=== PATIENT | male | born 1975 ===

== ENCOUNTER 2023-06-13 08:01 | Outpatient (REF) | payer MEDICAID, SELFPAY ==
[2023-06-13 12:00] LABS: Cholesterol 148 mg/dL (<200); HDL Cholesterol 47 mg/dL (>40); LDL Cholesterol Calculated 81 mg/dL (<100); Triglycerides 102 mg/dL (<150)
[2023-06-13 12:19] LABS: Folate 12.4 ng/mL (> or = 4.0); Vitamin B12 486 pg/mL (200-900)
== END 2023-06-13 08:02 | disposition home or self-care (01) ==
LOC: HO.HHCL 08:01
PROVIDERS: Visit Provider Registered Nurse
DX: R73.03 Prediabetes (principal); E78.2 Mixed hyperlipidemia
CPT/HCPCS: 36415; 80061; 82607; 82746

== ENCOUNTER 2024-01-01 14:36 | Outpatient (REF) | payer MEDICAID, SELFPAY ==
[2024-01-01 16:47] LABS: Alanine Aminotransferase 16 U/L (0-40); Albumin Level 4.2 g/dL (3.5-5.0); Alkaline Phosphatase 48 U/L (39-117); Anion Gap 14 (12-20); Aspartate Amino Transferase 16 U/L (5-37); Bilirubin Total 0.2 mg/dL (0.0-1.0); Blood Urea Nitrogen 16 mg/dL (9-16); Calcium 9.4 mg/dL (8.4-10.2); Carbon Dioxide 26 mmol/L (22-29); Chloride 105 mmol/L (96-108); Estimated Average Glucose 111 mg/dL; Estimated Glomerular Filt Rate 58; Glucose Random 94 mg/dL (60-115); Hemoglobin A1c % 5.5 % (<6.0); Sodium 141 mmol/L (135-145); Total Protein 7.5 g/dL (6.5-8.0)
== END 2024-01-01 14:37 | disposition home or self-care (01) ==
LOC: HO.HHCL 14:36
PROVIDERS: Visit Provider Registered Nurse
DX: R73.03 Prediabetes (principal); I10 Essential (primary) hypertension
CPT/HCPCS: 36415; 80053; 83036

== ENCOUNTER 2024-12-12 08:16 | Outpatient (REF) | payer MEDICAID, SELFPAY ==
--- OUTSIDE RECORDS SUMMARY | 2024-12-12 08:21 | XMS_ITS | Clinical Summary ---
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 Do not crush, chew, or split. 360 tablet 02/08/20 23 Active carbamide peroxide (Debrox) 6.5 % otic solution Administer 3-5 drops to affected ear twice daily for 5 days and then call clinic for ear irrigation 15 mL 04/23/20 23 Active triamcinolone (Kenalog) 0.1 % cream Apply topically 2 times daily. 30 g 1 03/05/20 24 Active olmesartan (BENIcar) 5 MG tabletIndications :Essential hypertension TAKE 1 TABLET (5 MG) BY MOUTH ONCE PER DAY. 90 tablet 2 08/27/19 25 Active rosuvastatin (Crestor) 10 MG tabletIndications :Mixed hyperlipidemia TAKE 1 TABLET BY MOUTH ONCE PER DAY. 90 tablet 11/22/19 25 Active chlorthalidone (Hygroton) 25 MG tabletIndications :Essential hypertension TAKE 0.5 TABLETS (12.5 MG) BY MOUTH ONCE PER DAY. 45 tablet 11/22/19 25 Active rosuvastatin (Crestor) 10 MG tabletIndications :Mixed hyperlipidemia Take 1 tablet (10 mg) by mouth Once per day. 30 tablet 11 12/05/19 24 2024 Discontinued chlorthalidone (Hygroton) 25 MG tabletIndications :Essential hypertension Take 0.5 tablets (12.5 mg) by mouth Once per day. 45 tablet 3 12/05/19 24 2024 Discontinued Active Problems Problem Noted Date Diagnosed Date Healthcare maintenance 03/19/2023 Overview (06/12/2023): Colonoscopy with biopsy January 2022-one polyp tubular adenoma (repeat 5 years). Pt showed me result on MyChart on phone. - Establisahed with eye and dental care at outside facilities Assessment & Plan (06/12/2023 10:33 PM EST): - Accepts flu and Td booster - Declines COVID Hyperlipidemia 02/28/2023 Overview (03/19/2023): ?? Rosuvastatin 10mg daily Assessment & Plan (06/12/2023 10:31 PM EST): ?? Continue current regimen ?? Repeat FLP Assessment & Plan (03/24/2023 11:28 AM EDT): ?? Engaged in shared decision making with patient re starting lipid lowering medication. Pt would like to start statin ?? START rosuvastatin 10mg daily Reviewed administration, risks, side effects to include muscle aches, headache, GI upset and risk of hepatotoxicity. Seek immediate medical care of severe nausea vomiting, yellowing of skin/eyes, darkening of urine or abdominal pain ?? Essential hypertension 10/31/2022 Overview (06/15/2024): Olmesartan 5mg daily Chlorthalidone 25mg - Aerobic exercise to reduce BP. Initial goal of 30 min walk 3-5x/week. Increase as tolerated. - low-sodium diet (goal: <2g/day) and heart healthy diet such as DASH to reduce BP and prevent ASCVD. - Home BP monitoring 1-2 x day with goal of <140/90. - Seek immediate medical attention for chest pain, palpitations, SOB, syncope, or sudden changes in mental status. - Do not change or discontinue current prescriptions without first consulting health care provider Assessment & Plan (06/12/2023 10:30 PM EST): ?? Well controlled ?? Continue current regimen Assessment & Plan (03/19/2023 8:56 AM EDT): ?? Well controlled ?? Continue current regimen ?? Prediabetes 10/31/2022 Overview (06/12/2023): ?? Metformin 1000 mg b.i.d Lab Results Component Value Date HGBA1C 5.4 11/03/2022 ?? Assessment & Plan (06/12/2023 10:32 PM EST): ?? Continue metformin ?? Check B12 levels given prolonged use Encounters Date Type Department Care Team Description 12/05/2024 2:30 PM EDT Office Visit [facility] [address] [place] [id number] [facility] Essential hypertension (Primary Dx); Prediabetes; Encounter for immunization; Dietary counseling; Exercise counseling; Class 3 severe obesity due to excess calories with serious comorbidity and body mass index (BMI) of 40.0 to 44.9 in adult 12/05/2024 Travel 11/25/2024 Patient Outreach [facility] [address] [place] [id number] [facility] Pre-visit Planning (SDOH screening negative and tobacco screening negative) 11/21/[address] [address] [place] [facility] Mixed hyperlipidemia; Essential hypertension from Last 3 Months Immunizations Immunization Administration Dates Next Due Influenza injectable quadrivalent preservative f ree 06/06/2023 Influenza, seasonal, injectable, preservative fr ee 06/04/2024 Pfizer Covid-19 Vaccine 12+ 12/05/2024, 3 Pneumococcal Conjugate PCV 20 12/05/2024 TD (adult), 2 Lf tetanus tox oid, preservative free, adsorbed 06/06/2023 Family History Medical History Relation Name Comments Hypertension Mother Stroke Mother Colon cancer Neg Hx Prostate cancer Neg Hx Relation Name Status Comments Mother Social History Tobacco Use Types Packs/Day Years Used Date Smoking Tobacco: Former Cigarettes Passive Smoke Exposure: Never Smokeless Tobacco: Never Tobacco Cessation:Counseling Given: Not Answered Alcohol Use Standard Drinks/Week Comments Never 0 (1 standard drink = 0.6 oz pur e alcohol) Depression Answer Date Recorded Patient Health Questionnaire-9 Score 0 06/04/2024 Patient Health Questionnaire-9 Score 0 06/04/2024 Last PHQ-9: Questionnaire Data Not on file 1 08/04/2023 Housing Stability Answer Date Recorded What is your housing situation today? I have florencia rosales 12/05/[address] you li ve. Do you have problems with any of the following? None of the above 12/05/2023 Food Insecurity Answer Date Recorded Within the past 12 months, y ou worried that your food would run out before you got money to buy more: Never True 12/05/2023 Within the past 12 months,th e food you bought just didn't last and you didn't have enough money to get more: Never True Transportation Answer Date Recorded In the past 12 months, has l ack of transportation kept you from medical appts, meetings, work or from getting things needed for daily living? No 12/05/2023 Utilities Answer Date Recorded In the past 12 months, has t he electric, gas, oil or water [employer] threatened to shut off services in your home? No 12/05/2023 Depression Answer Date Recorded Patient Health Questionnaire-2 Score 0 06/04/2024 Internet Access Answer Date Recorded Internet Access Q1 Yes 05/26/2024 Internet Access Q2 Not on file 05/26/2024 Sex and Gender Information Value Date Recorded Sex Assigned at Male 10/31/2022 4:06 PM EDT Legal Sex Male 4:05 PM EDT Gender Identity Male 10/31/2022 4:06 PM EDT Sexual Orientation Straight 08/25/2024 4: 07 PM EST Last Filed Vital Signs Vital Sign Reading Time Taken Comments Blood Pressure 138/70 12/05/2024 3:05 PM EDT Pulse 80 12/05/2024 2:31 PM EDT Temperature 36.9 ??C (98.4 ??F) 12/05/2024 2:31 PM ED T Respiratory Rate 20 12/05/2024 2:31 PM EDT Oxygen Saturation 98% 06/04/2024 2:22 PM EST Inhaled Oxygen Concentration - - Weight 122 kg (268 lb 3.2 oz) 12/05/2024 2:31 PM EDT Height 167.6 cm (5' 6 ) 12/05/2024 2:31 PM EDT Body Mass Index 43.29 12/05/2024 2:31 PM EDT Plan of Treatment Health Maintenance Due Date Last Done Comments CT Colonography 1973 FIT DNA/Cologuard 1973 FIT 1973 FOBT 1973 Sigmoidoscopy 1973 Disability Screening 1973 Alcohol/Substance Use Screening 1985 Family Planning (PISQ) 1988 Hepatitis C Screening 1991 Hepatitis B Vaccines (1 of 3 - 19+ 3-dose series) 1992 Zoster Vaccines (1 of 2) 2023 Diabetes: Hemoglobin A1C 12/31/2024 024, 11/03/2022 Depression Screening 06/04/2025 06/04/2024, 06/04/2024 SDOH Screening 11/25/2025 11/25/2024 Tobacco Screening 12/08/2025 12/08/2024 Colonoscopy 01/06/2027 01/06/2022 Colorectal Cancer Screening 01/06/2027 Lipid Panel 06/13/2028 06/13/2023, 12/12/2022, 11/03/2022 RSV Patients and Patients Aged 60 years or older (1 - 1-dose 75+ series) 2048 HIV Screening Completed 12/12/2022 DTaP/Tdap/Td Vaccines Discontinued 06/06/2023 Influenza Vaccine Completed 06/04/2024, 06/06/2023 COVID-19 Vaccine Completed 12/05/2024, 06/13/2023 Pneumococcal Vaccine: 50+ Years Completed 12/05/2024 HIB Vaccines Aged Out No longer eligi ble based on patient's age to complete this topic HPV Vaccines Aged Out No longer eligi ble based on patient's age to complete this topic Hepatitis A Vaccines Aged Out No long er eligible based on patient's age to complete this topic IPV Vaccines Aged Out No longer eligi ble based on patient's age to complete this topic Meningococcal B Vaccine Aged Out No l onger eligible based on patient's age to complete this topic Meningococcal Vaccine Aged Out No roque ana eligible based on patient's age to complete this topic RSV under 20 months Aged Out No longe r eligible based on patient's age to complete this topic Rotavirus Vaccines Aged Out No longer eligible based on patient's age to complete this topic Procedures Procedure Name Priority Date/Time Associated Diagnosis Comments HEMOGLOBIN A1C Routine 01/01/2024 2:37 PM EDT Prediabetes LIPID PANEL, STANDARD Routine 06/13/2023 8:03 AM EST Mixed hyperlipidemia HIV 1/2 ANTIGEN/ANTIBODY, FOURTH GENERATION W/RFL Routine 12/12/2022 8:39 AM EDT Healthcare maintenance HM COLONOSCOPY Routine 01/06/2022 from Last 3 Months or Most Recently Relevant to Health Maintenance Results * Hemoglobin A1c (01/01/2024 2:37 PM EDT) Hemoglobin A1c 5.5 <6.0 % [facility] Comment:Hemoglobin A1C Refer ence Range Adults: 4.8 - 6.0 % Non diabetic: < 6.0 % Goal: < 7.0 %Additional Action Suggested: > 8.0 %Note: Hemoglobin A1c results are invalid for patients with abnormal amounts of HbF. Blood transfusions may impact the HbA1c concentration in the patient sample. Estimated Average Glucose 111 mg/dL [facility] Comment:eAG = Estimated ave rage glucose which is %A1C expressed asaverage glucose, using the formula of the T1G-NzcxesoLebucmd Glucose study (ADAG), Diabetes Care, Vol.31,#8,Feb. 2007 Blood Venous blood specimen / Unknown 01/01/2024 2:37 PM EDT 01/01/2024 4:15 PM EDT [facility] LAB BLOOD ORDERABLES Final Re sult [facility] [address] [place] [phone] * Lipid Panel, Standard (06/13/2023 8:03 AM EST) Triglycerides 102 <150 mg/dL [facility] Comment:Desirable Triglyceri de: less than 150 mg/dLBorderline High Triglyceride 150-199 mg/dLHigh Triglyceride: 200-499 mg/dLVery High Triglyceride: greater than or equal to 5OO mg/dL Cholesterol 148 <200 mg/dL [facility] Comment:Desirable Cholestero l: less than 200 mg/dLBorderline High Cholesterol: 200-239 mg/dLHigh Cholesterol: greater than 239 mg/dL LDL Cholesterol Calculated 81 <100 mg/dL [facility] Comment:Desirable LDL: less than 100 mg/dLNear Optimal/Above Optimal LDL: 110- 129 mg/dLBorderline High LDL: 130-159 mg/dLHigh LDL: 160-189 mg/dLVery High LDL: greater than or equal to 190 mg/dL HDL Cholesterol 47 >40 mg/dL [facility] Comment:Desirable HDL: great er than 40 mg/dL Note: This HDL assay may give artificially low results in patients with liver disease. Blood Venous blood specimen / Unknown 06/13/2023 8:03 AM EST 06/13/2023 11:09 AM EST [facility] LAB BLOOD ORDERABLES Final Re sult [facility] [address] [place] [phone] [phone] * HIV-1/2 Antigen and Antibodies, Fourth Generation, with Reflexes (12/12/2022 8:39 AM EDT) HIV Antigen/Antibody, 4th Generation NON-REAC TIVE NON-REAC TIVE [facility] Comment: HIV-1 antigen and HIV-1/HIV-2 antibodies were not detected. There is no laboratory evidence of HIV infection. PLEASE NOTE: This information has been disclosed to you from records whose confidentiality may be protected by state law. ??If your state requires such protection, then the state law prohibits you from making any further disclosure of the information without the specific written consent of the person to whom it pertains, or as otherwise permitted by law. A general authorization for the release of medical or other information is NOT sufficient for this purpose. ?? For additional information please refer to http://education.[employer].Object Matrix/faq/EFC439 (This link is being provided for informational/ educational purposes only.) The performance of this assay has not been clinically validated in patients less than 2 years old. Blood Venous blood specimen / Unknown 12/12/2022 8:39 AM EDT 12/12/2022 8:39 AM EDT Narrative [facility] - 12/13/2022 7:54 PM EDT FASTING:YES FASTING: YES [facility] LAB BLOOD ORDERABLES Final Re sult [facility] [address], [place] [phone] [employer] [facility] [address] [place] [phone] * (ABNORMAL) Colonoscopy (01/06/2022) Colonoscopy Abnormal( A) Normal Comment:polyp 5 year repeat Historical Provider HEALTH MAINTENANCE Final Result from Last 3 Months or Most Recently Relevant to Health Maintenance Insurance [id number] 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
[2024-12-12 11:29] LABS: Estimated Average Glucose 111 mg/dL; Hemoglobin A1c % 5.5 % (<6.0); Total Hemoglobin (HGBA1C) 3633.7258 umol/L
[2024-12-12 12:13] LABS: Alanine Aminotransferase 20 U/L (0-40); Albumin Level 4.4 g/dL (3.5-5.0); Alkaline Phosphatase 46 U/L (39-117); Anion Gap 12 (12-20); Aspartate Amino Transferase 22 U/L (5-37); Bilirubin Total 0.3 mg/dL (0.0-1.0); Blood Urea Nitrogen 25 mg/dL (9-16); Calcium 9.7 mg/dL (8.4-10.2); Carbon Dioxide 27 mmol/L (22-29); Chloride 106 mmol/L (96-108); Cholesterol 162 mg/dL (<200); Estimated Glomerular Filt Rate > 60; Glucose Random 89 mg/dL (60-115); HDL Cholesterol 54 mg/dL (>40); LDL Cholesterol Calculated 96 mg/dL (<100); Sodium 141 mmol/L (135-145); Total Protein 7.3 g/dL (6.5-8.0); Triglycerides 62 mg/dL (<150)
== END 2024-12-12 08:17 | disposition home or self-care (01) ==
LOC: HO.HHCL 08:16
PROVIDERS: Visit Provider Registered Nurse
DX: I10 Essential (primary) hypertension (principal); R73.03 Prediabetes
CPT/HCPCS: 36415; 80053; 80061; 83036